=== PATIENT | female | born 1970 | race Caucasian/White ===

== ENCOUNTER → 2024-08-15 | Outpatient (CLI) | payer OTHER ==
--- NOTE | 2024-08-15 15:22 | CT ---
EXAMINATION TYPE: CT angio chest DATE OF EXAM: 08/15/2024 3:07 PM COMPARISON: Chest x-ray 08/08/2024 CLINICAL INDICATION: Female, 54 years old with history of R06.09 OTHER FORMS OF DYSPNEA, sob, TECHNIQUE: CT of the chest is performed on a spiral scan at 2 mm thick sections. Study is performed with intravenous contrast timed for evaluation for pulmonary embolism. This will limit additional po rtions of the evaluation. 10mm MIP images reconstructed by the technologist are reviewed on the comp uter in the coronal and sagittal planes. Contrast used:100 mL of Isovue 370 with IV Contrast, (none if empty) Oral contrast used: (none if empty) CT DLP: 418 mGycm, Automated exposure control for dose reduction was used. FINDINGS: No persistent filling defects are evident to suggest an acute pulmonary embolism. No mediastinal or hilar adenopathy enlarged by CT criteria is evident. The ascending aorta diameter at the level of the main pulmonary artery is 3.4 cm. The main pulmonary artery diameter at the bifurcation is 2.3 cm. Lung windows are clear. No significant coronary artery calcifications. Limited CT sections were through the upper abdomen. There is a small hiatal hernia. IMPRESSION: 1. No acute pulmonary embolism. 2. No suspicious acute pulmonary process. 3. Small hiatal hernia [facility] Dave, , 08/15/2024 3:20 PM
== END | disposition home or self-care (01) ==
LOC: RADCTMAIN 14:28
PROVIDERS: ATTEND Internal Medicine Critical Care Medicine
DX: K44.9 Diaphragmatic hernia without obstruction or gangrene (principal)
CPT/HCPCS: 71275; Q9967